=== PATIENT | male | born 1955 | race Two or more races ===

== ENCOUNTER 2019-06-05 09:39 | Inpatient (IN) | payer MEDICARE, OTHER ==
[~2019-06-05] VITALS: Ht 152.4 cm; Wt 48.1 kg
[2019-06-05 10:34] LABS: EOSINOPHILS % 1.2 % (0.0-5.0); HEMATOCRIT. 44.5 % (42.0-52.0); HEMOGLOBIN. 14.7 g/dL (14.0-18.0); LYMPHOCYTES % 19.8 % (20.0-50.0); MEAN CORPUSCULAR HEMOGLOBIN 33.8 pg (28.0-32.0); MEAN CORPUSCULAR VOLUME 102.4 fL (80.0-94.0); MEAN PLATELET VOLUME 8.3 fl (7.4-10.4); MONOCYTES % 11.8 % (2.0-8.0); NEUTROPHILS % 66.2 % (40.0-76.0); PLATELET 181 x1000/uL (130-400); RED BLOOD CELL COUNT 4.34 mill/uL (4.7-6.1)
[2019-06-05 10:39] LABS: CHLORIDE 99 mEq/L (98-107)
[2019-06-05] MEDS ORDERED: DILTIAZEM HCL 125 MG in DEXT 5% WATER 100 ML IV ONE (11:00)
[2019-06-05] MEDS ORDERED: DILTIAZEM HCL 5MG/ML 5ML VIAL IV ONE (11:00)
[2019-06-05] MEDS ORDERED: DILTIAZEM HCL 5MG/ML 10ML VIAL IV ONE (11:30)
[2019-06-05] MEDS ORDERED: ASPIRIN 81MG TABLET PO ONE (11:45)
[2019-06-05] MEDS ORDERED: DILTIAZEM HCL 5MG/ML 10ML VIAL IV PRN (13:15)
[2019-06-05] MEDS: DILTIAZEM HCL 60MG TABLET PO SCH ×2 (14:45→21:00)
[2019-06-05 23:20] VITALS: BP 138/93
[2019-06-06] VITALS (8 sets, daily range): BP systolic 99–140; BP diastolic 71–92
[2019-06-06] MEDS ORDERED: POTA20TA82 PO (00:21)
[2019-06-06] MEDS ORDERED: LISI10TA5 PO (00:21)
[2019-06-06] MEDS ORDERED: FURO40SO4 PO (00:21)
[2019-06-06] MEDS ORDERED: METF-414 PO (00:21)
[2019-06-06] MEDS ORDERED: MECLIZINE 25MG TABLET PO PRN (01:00)
[2019-06-06] MEDS ORDERED: MORPHINE SULFATE 2 MG/ML CPJ (NOT FOR IM USE) IV PRN (01:00)
[2019-06-06] MEDS ORDERED: DEXTROSE 50% WATER 50ML SYRINGE IV PRN (07:45)
[2019-06-06] MEDS: DILTIAZEM HCL 60MG TABLET PO SCH ×3 (08:37→20:44)
[2019-06-06] MEDS: INSULIN LISPRO 100 UNITS/ML SUBCUT SCH ×4 (08:39→21:00)
[2019-06-06] MEDS ORDERED: GUAIFENESIN 200MG TABLET PO PRN (12:00)
[2019-06-06] MEDS: BLOOD SUGAR DIAGNOSTIC STRIP TEST SCH ×3 (12:13→19:59)
[2019-06-06] MEDS: ENOXAPARIN 100MG/ML SYR SUBCUT SCH ×2 (12:13→20:45)
[2019-06-06] MEDS: METOPROLOL TARTRATE 25MG TABLET PO SCH ×2 (12:13→20:44)
[2019-06-06 13:42] LABS: INR 1.8; PARTIAL THROMBOPLASTIN TIME 34.5 sec (23.4-31.0); PROTHROMBIN TIME 17.7 sec (9.6-11.0)
[2019-06-06] MEDS: GUAIFENESIN 600MG ER TABLET PO PRN (15:25)
[2019-06-06] MEDS: FUROSEMIDE 40MG TABLET PO SCH (19:06)
[2019-06-06] MEDS: ZOLPIDEM TARTRATE 5MG TABLET PO PRN (23:00)
[2019-06-07] VITALS: BP 100/72
[2019-06-07] MEDS: DILTIAZEM HCL 60MG TABLET PO SCH ×4 (02:45→21:07)
[2019-06-07 02:46] VITALS: BP 107/72
[2019-06-07 05:10] LABS: HEMATOCRIT. 44.9 % (42.0-52.0); HEMOGLOBIN. 14.4 g/dL (14.0-18.0); MEAN CORPUSCULAR VOLUME 106.2 fL (80.0-94.0); MEAN PLATELET VOLUME 8.5 fl (7.4-10.4); PLATELET 173 x1000/uL (130-400); RED BLOOD CELL COUNT 4.23 mill/uL (4.7-6.1); RED CELL DISTRIBUTION WIDTH 16.6 % (11.6-14.6)
[2019-06-07 05:17] LABS: INR 3.3; PROTHROMBIN TIME 32.5 sec (9.6-11.0)
[2019-06-07 06:01] LABS: HEPATITIS B SURFACE ANTIGEN NEGATIVE
[2019-06-07] MEDS: BLOOD SUGAR DIAGNOSTIC STRIP TEST SCH ×4 (06:25→19:51)
[2019-06-07] MEDS: INSULIN LISPRO 100 UNITS/ML SUBCUT SCH ×4 (06:29→20:45)
[2019-06-07 06:30] LABS: HEPATITIS A AB IGM NEGATIVE (NEGATIVE)
[2019-06-07 06:51] LABS: PHOSPHORUS 8.2 mg/dL (2.5-4.9)
[2019-06-07 08:00] VITALS: BP 115/67
[2019-06-07] MEDS: ENOXAPARIN 100MG/ML SYR SUBCUT SCH (08:37)
[2019-06-07] MEDS: FUROSEMIDE 40MG TABLET PO SCH (08:37)
[2019-06-07] MEDS: METOPROLOL TARTRATE 25MG TABLET PO SCH ×3 (08:40→20:41)
[2019-06-07] MEDS ORDERED: INSULIN REGULAR (HUMULIN R) UD 100 UNITS/ML SYR IV STA (10:25)
[2019-06-07] MEDS ORDERED: DEXTROSE 50% WATER 50ML SYRINGE IV STA (10:25)
[2019-06-07] MEDS ORDERED: SODIUM BICARBONATE 8.4% 1 MEQ/ML 50ML SYR IV STA (10:26)
[2019-06-07 11:11] LABS: HEMATOCRIT. 45.1 % (42.0-52.0); MEAN CORPUSCULAR HEMOGLOBIN 33.8 pg (28.0-32.0); MEAN CORPUSCULAR VOLUME 108.7 fL (80.0-94.0); MEAN PLATELET VOLUME 9.1 fl (7.4-10.4); PLATELET 177 x1000/uL (130-400); RED BLOOD CELL COUNT 4.15 mill/uL (4.7-6.1); RED CELL DISTRIBUTION WIDTH 17.4 % (11.6-14.6)
[2019-06-07 11:56] LABS: NUCLEATED RED BLOOD CELLS 1 /100 WBC
[2019-06-07 11:59] LABS: PLATELET ESTIMATE NORMAL
[2019-06-07 12:00] VITALS: BP 135/76
[2019-06-07] MEDS ORDERED: CALCIUM ACETATE 667MG CAPSULE PO SCH (12:40)
[2019-06-07 12:44] LABS: PHOSPHORUS 9.4 mg/dL (2.5-4.9)
[2019-06-07 12:50] LABS: CREATINE KINASE 575 IU/L (39-308)
[2019-06-07] MEDS: CITRIC ACID/SODIUM CITRATE SOLN 30ML UDC PO SCH ×3 (13:02→17:55)
[2019-06-07 13:52] LABS: NUCLEATED RED BLOOD CELLS 8 /100 WBC; PLATELET ESTIMATE NORMAL
[2019-06-07] MEDS: CALCIUM ACETATE 667 MG TABLET PO SCH ×2 (13:53→17:55)
[2019-06-07 16:00] VITALS: BP 117/76
[2019-06-07] MEDS ORDERED: SODIUM POLYSTYRENE SULFONATE 15 G/60 ML BOT PO NR (16:00)
[2019-06-07] MEDS: GUAIFENESIN 600MG ER TABLET PO PRN (16:57)
[2019-06-07 19:59] LABS: CLARITY URINE CLOUDY (CLEAR); COLOR URINE DARK YELLOW (YELLOW); KETONES URINE NEGATIVE (NEGATIVE); LEUKOCYTE ESTERASE URINE TRACE (NEGATIVE); NITRITE URINE NEGATIVE (NEGATIVE); OCCULT BLOOD URINE 1+ (NEGATIVE); PROTEIN URINE 3+ (NEGATIVE); SPECIFIC GRAVITY URINE 1.011 (1.005-1.030)
[2019-06-07 20:00] VITALS: BP 131/77
[2019-06-07 20:14] LABS: *AMPHETAMINES SCREEN URINE NEGATIVE (NEGATIVE); *BARBITURATES SCREEN URINE NEGATIVE (NEGATIVE); *BENZODIAZEPINES SCREEN URINE NEGATIVE (NEGATIVE); *COCAINE SCREEN URINE NEGATIVE (NEGATIVE)
[2019-06-07 20:15] LABS: CANNABINOID URINE SCREEN NEGATIVE (NEGATIVE); METHADONE URINE SCREEN NEGATIVE (NEGATIVE); OPIATES URINE SCREEN NEGATIVE (NEGATIVE); PHENCYCLIDINE URINE SCREEN NEGATIVE (NEGATIVE)
[2019-06-07] MEDS: ZOLPIDEM TARTRATE 5MG TABLET PO PRN (21:07)
[2019-06-08] VITALS: BP 118/63
[2019-06-08 04:00] VITALS: BP 119/62
[2019-06-08] MEDS: BLOOD SUGAR DIAGNOSTIC STRIP TEST SCH ×3 (05:26→17:37)
[2019-06-08] MEDS: INSULIN LISPRO 100 UNITS/ML SUBCUT SCH ×3 (05:29→17:37)
[2019-06-08] MEDS: DILTIAZEM HCL 60MG TABLET PO SCH (05:30)
[2019-06-08 08:22] VITALS: BP 117/60
[2019-06-08] MEDS: CALCIUM ACETATE 667 MG TABLET PO SCH ×3 (08:50→17:38)
[2019-06-08] MEDS: CITRIC ACID/SODIUM CITRATE SOLN 30ML UDC PO SCH (08:50)
[2019-06-08] MEDS: METOPROLOL TARTRATE 25MG TABLET PO SCH (08:51)
[2019-06-08] MEDS: FUROSEMIDE 40MG TABLET PO SCH (08:56)
[2019-06-08] MEDS ORDERED: ENOXAPARIN 100MG/ML SYR SUBCUT SCH (09:00)
[2019-06-08 09:31] LABS: BASOPHILS % 0.2 % (0.0-2.0); EOSINOPHILS % 0.7 % (0.0-5.0); HEMOGLOBIN. 13.5 g/dL (14.0-18.0); LYMPHOCYTES % 7.6 % (20.0-50.0); MEAN CORPUSCULAR HEMOGLOBIN 33.7 pg (28.0-32.0); MEAN CORPUSCULAR VOLUME 102.4 fL (80.0-94.0); MEAN PLATELET VOLUME 8.4 fl (7.4-10.4); MONOCYTES % 7.2 % (2.0-8.0); NEUTROPHILS % 84.3 % (40.0-76.0); PLATELET 154 x1000/uL (130-400); RED CELL DISTRIBUTION WIDTH 16.4 % (11.6-14.6)
[2019-06-08 09:57] LABS: PHOSPHORUS 5.3 mg/dL (2.5-4.9)
[2019-06-08] MEDS ORDERED: DILTIAZEM HCL 120MG CAPSULE CD 24HR PO SCH (10:00)
[2019-06-08 12:13] VITALS: BP 104/74
[2019-06-08 16:00] VITALS: BP 104/47
[2019-06-08] MEDS ORDERED: APIXABAN 2.5 MG TABLET PO SCH (17:00)
[2019-06-08] MEDS ORDERED: CITRIC ACID/SODIUM CITRATE SOLN 30ML UDC PO SCH (17:00)
[2019-06-08 18:06] VITALS: BP 104/47
[2019-06-11 09:06] LABS: ANTI-NUCLEAR ANTIBODIES DIRECT Negative (Negative)
== END 2019-06-08 19:10 | disposition short-term general hospital (02) | DRG 190 ==
LOC: ER 09:39 → 8WST 11:39 → EDBEDREQ 17:32 → EDBEDREQSVC 17:32 → EDBEDREQ 19:29 → ENRESERV 21:25
PROVIDERS: ADMIT Internal Medicine; ATTEND Internal Medicine
DX: I21.4 Non-ST elevation (NSTEMI) myocardial infarction (principal); D68.9 Coagulation defect, unspecified; E11.65 Type 2 diabetes mellitus with hyperglycemia; E11.22 Type 2 diabetes mellitus with diabetic chronic kidney disease; N17.9 Acute kidney failure, unspecified; E87.2 Acidosis; N18.3 Chronic kidney disease, stage 3 (moderate); E83.39 Other disorders of phosphorus metabolism; I13.0 Hypertensive heart and chronic kidney disease with heart failure and stage 1 through stage 4 chronic kidney disease, or unspecified chronic kidney disease; I50.22 Chronic systolic (congestive) heart failure; E87.1 Hypo-osmolality and hyponatremia; E87.5 Hyperkalemia; K76.6 Portal hypertension; D75.89 Other specified diseases of blood and blood-forming organs; D72.821 Monocytosis (symptomatic); K74.60 Unspecified cirrhosis of liver; N28.1 Cyst of kidney, acquired; K80.20 Calculus of gallbladder without cholecystitis without obstruction; E78.5 Hyperlipidemia, unspecified; I42.9 Cardiomyopathy, unspecified; R04.0 Epistaxis; Z91.19 Patient's noncompliance with other medical treatment and regimen; Z79.01 Long term (current) use of anticoagulants; Z79.899 Other long term (current) drug therapy; Z79.84 Long term (current) use of oral hypoglycemic drugs; I48.20 Chronic atrial fibrillation, unspecified
CPT/HCPCS: 36415; 71045; 76700; 80048; 80053; 80061; 80076; 80305; 81003; 82550; 82962; 83036; 83735; 83880; 84100; 84484; 85025; 86038; 86160; 86705; 86706; 86709; 86803; 87340; 93005; 93306; 96374; 99291; G0378; J1650; J1815; J3490; J7060

== ENCOUNTER 2019-06-12 12:33 | Inpatient (IN) | payer OTHER ==
[~2019-06-12] VITALS: Ht 167.6 cm; Wt 101.2 kg
[~2019-06-12 12:33] MED LIST: FURO40SO4 PO; LISI10TA5 PO; METF-414 PO; POTA20TA82 PO
[2019-06-12] MEDS ORDERED: FUROSEMIDE 40MG/4ML VIAL IV ONE (15:30)
[2019-06-12 15:41] LABS: BASOPHILS % 0.7 % (0.0-2.0); EOSINOPHILS % 0.9 % (0.0-5.0); HEMATOCRIT. 45.8 % (42.0-52.0); HEMOGLOBIN. 14.9 g/dL (14.0-18.0); LYMPHOCYTES % 19.6 % (20.0-50.0); MEAN CORPUSCULAR HEMOGLOBIN 33.7 pg (28.0-32.0); MEAN CORPUSCULAR VOLUME 103.3 fL (80.0-94.0); MEAN PLATELET VOLUME 8.5 fl (7.4-10.4); MONOCYTES % 12.5 % (2.0-8.0); NEUTROPHILS % 66.3 % (40.0-76.0); PLATELET 124 x1000/uL (130-400); RED BLOOD CELL COUNT 4.43 mill/uL (4.7-6.1); RED CELL DISTRIBUTION WIDTH 17.5 % (11.6-14.6)
[2019-06-12 15:46] LABS: CHLORIDE 99 mEq/L (98-107)
[2019-06-12 15:47] LABS: INR 1.4; PROTHROMBIN TIME 13.7 sec (9.6-11.0)
[2019-06-12] MEDS ORDERED: METOPROLOL TARTRATE 5MG/5ML VIAL IV SCH (16:00)
[2019-06-12] MEDS ORDERED: DOCUSATE SODIUM 100MG CAPSULE PO PRN (17:30)
[2019-06-12] MEDS ORDERED: MORPHINE SULFATE 2 MG/ML CPJ (NOT FOR IM USE) IV PRN (17:30)
[2019-06-12] MEDS ORDERED: ONDANSETRON HCL 4MG/2ML INJ IV PRN (17:30)
[2019-06-12] MEDS ORDERED: ACETAMINOPHEN 325MG TABLET PO PRN (17:30)
[2019-06-12] MEDS ORDERED: MAGNESIUM/ALUMINUM HYDROXIDE/SIMETHICONE 30ML UDC PO PRN (17:30)
[2019-06-12] MEDS ORDERED: IPRATROPIUM/ALBUTEROL 0.5-3(2.5)MG/3ML NEB NEB PRN (17:30)
[2019-06-12] MEDS ORDERED: LORAZEPAM 2MG/ML CPJ IV PRN (17:30)
[2019-06-12] MEDS ORDERED: NA PHOS,M-B/NA PHOS,DI-BA ENEMA 118ML PR PRN (17:30)
[2019-06-12] MEDS ORDERED: CLONIDINE 0.1MG TABLET PO PRN (17:30)
[2019-06-12] MEDS ORDERED: HYDROCODONE/ACETAMINOPHEN 5/325MG TABLET PO PRN (17:30)
[2019-06-12] MEDS ORDERED: DIPHENHYDRAMINE 50MG/ML VIAL IV PRN (17:30)
[2019-06-12] MEDS ORDERED: ENOXAPARIN 40MG/0.4ML SYR SUBCUT SCH (18:00)
[2019-06-12 19:55] LABS: CHLORIDE 101 mEq/L (98-107)
[2019-06-13] MEDS ORDERED: DEXTROSE 50% WATER 50ML SYRINGE IV PRN (03:45)
[2019-06-13 04:00] VITALS: BP 114/79
[2019-06-13] MEDS: BLOOD SUGAR DIAGNOSTIC STRIP TEST SCH ×4 (06:21→21:14)
[2019-06-13] MEDS: INSULIN LISPRO 100 UNITS/ML SUBCUT SCH ×4 (07:50→21:00)
[2019-06-13] MEDS: ASPIRIN 81MG EC TABLET PO SCH (08:09)
[2019-06-13] MEDS: FUROSEMIDE 40MG/4ML VIAL IV SCH (08:09)
[2019-06-13 09:58] LABS: BASOPHILS % 0.7 % (0.0-2.0); EOSINOPHILS % 1.8 % (0.0-5.0); HEMATOCRIT. 43.2 % (42.0-52.0); HEMOGLOBIN. 14.4 g/dL (14.0-18.0); LYMPHOCYTES % 15.8 % (20.0-50.0); MEAN CORPUSCULAR HEMOGLOBIN 34.4 pg (28.0-32.0); MEAN PLATELET VOLUME 8.9 fl (7.4-10.4); MONOCYTES % 10.6 % (2.0-8.0); NEUTROPHILS % 71.1 % (40.0-76.0); PLATELET 119 x1000/uL (130-400); RED BLOOD CELL COUNT 4.19 mill/uL (4.7-6.1); RED CELL DISTRIBUTION WIDTH 17.1 % (11.6-14.6)
[2019-06-13 10:30] LABS: CHLORIDE 99 mEq/L (98-107)
[2019-06-13 10:37] LABS: LDL CHOLESTEROL 59 mg/dL (5-100)
[2019-06-13 10:38] LABS: T4 FREE 1.53 ng/dL (0.76-1.46)
[2019-06-13 10:39] LABS: HDL CHOLESTEROL 15 mg/dL (40-59)
[2019-06-13] MEDS ORDERED: IPRATROPIUM/ALBUTEROL 0.5-3(2.5)MG/3ML NEB HHN PRN (12:30)
[2019-06-13] MEDS: ENOXAPARIN 100MG/ML SYR SUBCUT SCH ×2 (13:30→21:15)
[2019-06-13 16:00] VITALS: BP 120/80
[2019-06-13 16:46] LABS: CREATINE KINASE MB FRACTION 1.2 ng/mL (0.5-3.6)
[2019-06-13] MEDS: GUAIFENESIN 200MG/10ML SUGAR FREE UDC PO PRN ×2 (18:16→22:53)
[2019-06-13 20:00] VITALS: BP 122/85
[2019-06-13] MEDS: IPRATROPIUM BROMIDE (0.02%) 0.5MG/2.5ML NEB HHN SCH (20:28)
[2019-06-13] MEDS: FAMOTIDINE 20MG TABLET PO SCH (21:14)
[2019-06-14] VITALS (7 sets, daily range): BP systolic 105–124; BP diastolic 75–88
[2019-06-14 00:51] LABS: CREATINE KINASE MB FRACTION 1.3 ng/mL (0.5-3.6)
[2019-06-14] MEDS: IPRATROPIUM BROMIDE (0.02%) 0.5MG/2.5ML NEB HHN SCH ×4 (02:12→19:53)
[2019-06-14] MEDS: BLOOD SUGAR DIAGNOSTIC STRIP TEST SCH ×4 (06:39→21:11)
[2019-06-14 06:59] LABS: CHLORIDE 100 mEq/L (98-107)
[2019-06-14] MEDS: INSULIN LISPRO 100 UNITS/ML SUBCUT SCH ×4 (07:11→21:11)
[2019-06-14 07:12] LABS: CREATINE KINASE 118 IU/L (39-308)
[2019-06-14 07:16] LABS: CREATINE KINASE MB FRACTION 1.3 ng/mL (0.5-3.6)
[2019-06-14 07:29] LABS: EOSINOPHILS % 2.4 % (0.0-5.0); HEMATOCRIT. 44.3 % (42.0-52.0); HEMOGLOBIN. 14.3 g/dL (14.0-18.0); LYMPHOCYTES % 22.3 % (20.0-50.0); MEAN CORPUSCULAR HEMOGLOBIN 33.4 pg (28.0-32.0); MEAN CORPUSCULAR VOLUME 103.3 fL (80.0-94.0); MEAN PLATELET VOLUME 9.1 fl (7.4-10.4); MONOCYTES % 12.7 % (2.0-8.0); NEUTROPHILS % 61.6 % (40.0-76.0); PLATELET 112 x1000/uL (130-400); RED BLOOD CELL COUNT 4.28 mill/uL (4.7-6.1)
[2019-06-14] MEDS: FUROSEMIDE 40MG/4ML VIAL IV SCH (08:36)
[2019-06-14] MEDS: FAMOTIDINE 20MG TABLET PO SCH ×2 (08:37→20:58)
[2019-06-14] MEDS: ASPIRIN 81MG EC TABLET PO SCH (08:37)
[2019-06-14] MEDS: ENOXAPARIN 100MG/ML SYR SUBCUT SCH ×2 (08:37→20:57)
[2019-06-14] MEDS: GUAIFENESIN 200MG/10ML SUGAR FREE UDC PO PRN ×4 (10:07→23:59)
[2019-06-14] MEDS ORDERED: LACTULOSE 20G/30ML UDC PO NR (11:15)
[2019-06-15] VITALS: BP 109/74
[2019-06-15] MEDS: IPRATROPIUM BROMIDE (0.02%) 0.5MG/2.5ML NEB HHN SCH ×4 (00:10→19:49)
[2019-06-15 04:00] VITALS: BP 108/84
[2019-06-15] MEDS: GUAIFENESIN 200MG/10ML SUGAR FREE UDC PO PRN ×5 (05:10→21:49)
[2019-06-15] MEDS: INSULIN LISPRO 100 UNITS/ML SUBCUT SCH ×4 (07:41→20:58)
[2019-06-15] MEDS: BLOOD SUGAR DIAGNOSTIC STRIP TEST SCH ×4 (07:41→20:55)
[2019-06-15 07:46] LABS: BASOPHILS % 1.1 % (0.0-2.0); EOSINOPHILS % 3.3 % (0.0-5.0); HEMATOCRIT. 42.3 % (42.0-52.0); HEMOGLOBIN. 14.1 g/dL (14.0-18.0); LYMPHOCYTES % 23.1 % (20.0-50.0); MEAN CORPUSCULAR VOLUME 102.1 fL (80.0-94.0); MEAN PLATELET VOLUME 9.3 fl (7.4-10.4); MONOCYTES % 11.5 % (2.0-8.0); PLATELET 123 x1000/uL (130-400); RED BLOOD CELL COUNT 4.15 mill/uL (4.7-6.1); RED CELL DISTRIBUTION WIDTH 16.9 % (11.6-14.6)
[2019-06-15 07:54] LABS: CHLORIDE 99 mEq/L (98-107)
[2019-06-15] MEDS: ASPIRIN 81MG EC TABLET PO SCH (09:20)
[2019-06-15] MEDS: FAMOTIDINE 20MG TABLET PO SCH ×2 (09:20→20:54)
[2019-06-15] MEDS: FUROSEMIDE 40MG/4ML VIAL IV SCH (09:20)
[2019-06-15] MEDS: ENOXAPARIN 100MG/ML SYR SUBCUT SCH ×2 (09:21→20:55)
[2019-06-15 12:00] VITALS: BP 109/63
[2019-06-15 16:00] VITALS: BP 107/70
[2019-06-15 20:00] VITALS: BP 120/72
[2019-06-15] MEDS ORDERED: ZOLPIDEM TARTRATE 5MG TABLET PO PRN (22:00)
[2019-06-16] VITALS: BP 111/66
[2019-06-16] MEDS: IPRATROPIUM BROMIDE (0.02%) 0.5MG/2.5ML NEB HHN SCH (01:41)
[2019-06-16] MEDS: GUAIFENESIN 200MG/10ML SUGAR FREE UDC PO PRN ×2 (03:21→12:43)
[2019-06-16 04:00] VITALS: BP 113/78
[2019-06-16] MEDS: BLOOD SUGAR DIAGNOSTIC STRIP TEST SCH ×2 (06:20→12:41)
[2019-06-16] MEDS: INSULIN LISPRO 100 UNITS/ML SUBCUT SCH ×2 (07:50→12:40)
[2019-06-16 08:08] VITALS: BP 114/78
[2019-06-16] MEDS: ASPIRIN 81MG EC TABLET PO SCH (09:08)
[2019-06-16] MEDS: FAMOTIDINE 20MG TABLET PO SCH (09:08)
[2019-06-16] MEDS: FUROSEMIDE 40MG/4ML VIAL IV SCH (09:09)
[2019-06-16] MEDS: ENOXAPARIN 100MG/ML SYR SUBCUT SCH (09:33)
[2019-06-16] MEDS ORDERED: POTASSIUM CHLORIDE 20MEQ TABLET SR PO NR (10:30)
[2019-06-16 12:10] VITALS: BP 112/72
[2019-06-16 12:22] VITALS: BP 112/72
== END 2019-06-16 14:00 | disposition home or self-care (01) | DRG 133 ==
LOC: ER 12:33 → ENRESERV 06-13 03:07 → 6WST 06-13 03:52
PROVIDERS: ADMIT Internal Medicine; ATTEND Internal Medicine
DX: J96.00 Acute respiratory failure, unspecified whether with hypoxia or hypercapnia (principal); I50.23 Acute on chronic systolic (congestive) heart failure; I27.29 Other secondary pulmonary hypertension; I08.1 Rheumatic disorders of both mitral and tricuspid valves; I42.9 Cardiomyopathy, unspecified; I11.0 Hypertensive heart disease with heart failure; E11.9 Type 2 diabetes mellitus without complications; I48.91 Unspecified atrial fibrillation; E78.5 Hyperlipidemia, unspecified; R74.0 Nonspecific elevation of levels of transaminase and lactic acid dehydrogenase [LDH]; M62.82 Rhabdomyolysis; I25.10 Atherosclerotic heart disease of native coronary artery without angina pectoris; N39.0 Urinary tract infection, site not specified; J44.9 Chronic obstructive pulmonary disease, unspecified; K70.30 Alcoholic cirrhosis of liver without ascites; Z79.899 Other long term (current) drug therapy; Z79.84 Long term (current) use of oral hypoglycemic drugs
CPT/HCPCS: 36415; 71045; 78582; 80048; 80053; 80061; 80076; 82140; 82270; 82550; 82553; 82962; 83036; 83880; 84439; 84443; 84484; 85025; 85379; 93005; 93306; 93970; 94640; 99291; A9558; J1650; J1815; J1940; J3490